=== PATIENT | male | born 1950 | race Two or more races ===

== ENCOUNTER 2025-06-21 10:07 | Inpatient (IN) | payer OTHER, MEDICARE ==
[2025-06-21] VITALS (9 sets, daily range): BP systolic 96–114; BP diastolic 47–73; PULSE 78–86; RESP 11–18; TEMP 97.9–99.3; O2SAT 99–100
[~2025-06-21] VITALS: Ht 175.3 cm; Wt 77.3 kg
--- NOTE | 2025-06-21 10:31 | ED.PDOC ---
HPI (NEURO) HPI Comments 74 y/o M, with PMHx of CAD, CHF, and pancreatic cancer presents to the ED for CC of generalized weakness. Patient reports, he has been experiencing generalized weakness [id number]. Patient relays, to have further associated symptoms of faintness and fatigue. Patient endorses, being transfused for similar symptoms in the past. Patient denies shortness of breath, chest pain, melena, or hematemesis. No other symptoms or modifying factors are present at this time. Chief Complaint: General Weakness Time Seen by MD: 10:20 Reviewed Notes: Nurses Notes, Medications, Allergies Information Source: Patient, Spouse Mode of Arrival: Ambulatory Severity: Moderate Headache Severity: None Timing: Weeks Duration: Since onset Prehospital treatment: None Weakness Location: Generalized Onset: At rest Circumstances: Spontaneous Symptoms: Faintness, Weakness History of: Cancer Associated Signs and Symptoms: Weakness Past Medical History PAST MEDICAL HISTORY: CAD, Cancer, CHF, DM Surgical History: Denies all surgeries Family History Family History: Unknown Social History Smoker: Non-Smoker Alcohol: Denies ETOH Use Drugs: Denies Drug Use Lives In: Home Constitutional: reports: fatigue, weakness; denies: chills, diaphoresis, fever, malaise, sweats, others EENTM: denies: blurred vision, double vision, ear bleeding, ear discharge, ear drainage, ear pain, ear ringing, eye pain, eye redness, hearing loss, mouth pain, mouth swelling, nasal discharge, nose bleeding, nose congestion, nose pain, photophobia, tearing, throat pain, throat swelling, voice changes, others Respiratory: denies: cough, hemoptysis, orthopnea, SOB at rest, shortness of breath, SOB with excertion, stridor, wheezing, others Cardiovascular: denies: chest pain, dizzy spells, diaphoresis, Dyspnea on exertion, edema, irregular heart beat, left arm pain, lightheadedness, palpitations, PND, syncope, others Gastrointestinal: denies: abdomen distended, abdominal pain, blood streaked bowels, constipated, diarrhea, dysphagia, difficulty swallowing, hematemesis, melena, nausea, poor appetite, poor fluid intake, rectal bleeding, rectal pain, vomiting, others Genitourinary: denies: burning, dysuria, flank pain, frequency, hematuria, incontinence, penile discharge, penile sore, pain, testicle pain, testicle swelling, urgency, others Neurological: denies: dizziness, fainting, headache, left sided numbness, left sided weakness, numbness, paresthesia, pre-existing deficit, right sided numbness, right sided weakness, seizure, speech problems, tingling, tremors, wea kness, others Musculoskeletal: denies: back pain, gout, joint pain, joint swelling, muscle pain, muscle stiffness, neck pain, others Integumetry: denies: bruises, change in color, change in hair/nails, dryness, l aceration, lesions, lumps, rash, wounds, others Allergic/Immunocompromised: denies: Difficulty Healing, Frequent Infections, Hives, Itching, others Hematologic/Lymphatic: denies: anemia, blood clots, easy bleeding, easy bruising, swollen glands, others Endocrine: denies: excessive hunger, excessive sweating, excessive thirst, excessive urination, flushing, intolerance to cold, intolerance to heat, unexplained weight gain, unexplained weight loss, others Psychiatric: denies: anxiety, bipolar disorder, depression, hopeless, panic disorder, schizophrenia, sleepless, suicidal, others All Other Systems: Reviewed and Negative Physical Exam General Appearance: Moderate Distress HEENT: Pale Conjuntivae (L), Pale Conjuntivae (R), Pharynx Normal, TMs Normal Neck: Full Range of Motion, Non-Tender, Normal, Normal Inspection Respiratory: Chest Non-Tender, Lungs Clear, No Accessory Muscle Use, No Respiratory Distress, Normal Breath Sounds Cardiovascular: No Edema, No JVD, No Murmur, No Gallop, Tachycardia Breast Exam: Deferred Gastrointestinal: No Organomegaly, Non Tender, No Pulsatile Mass, Normal Bowel Sounds, Soft Genitalia: Deferred Pelvic: Deferred Rectal: Deferred Extremities: No calf tenderness, Normal capillary refill, No pedal edema Musculoskeletal : Apperance: Normal Neurologic: Alert, moisture meter operator II-XII nml as Tested, Motor Weakness, Normal Affect, Normal Mood, No Sensory Deficits Cerebellar Function: Normal Reflexes: Normal Skin: Dry, Pallor, Warm Lymphatic: No Adenopathy EKG EKG : Pulse Rate (adult): 92 [place]: Normal Cardiac Rhythm: NSR Block: None Hypertrophy: None ST: Normal Comments low voltage Was a procedure done? Was a procedure done?: No Differential Diagnosis (SZ) Seizure: N/A General Weakness: Anemia, Electrolyte imbalance, Hypoglycemia X-Ray, Labs, Meds, VS Vital Signs Date Time Temp Pulse Resp B/P (MAP) Pulse Ox O2 Delivery O2 Flow Rate FiO2 06/21/25 16:00 85 06/21/25 15:30 98.1 83 15 110/59 98.1 06/21/25 15:18 86 11 100 Room Air* 0 21 06/21/25 15:10 98.1 84 12 109/47 98.1 06/21/25 14:00 97.4 90 18 86/55 (65) 94 97.4 06/21/25 12:00 89 18 104/61 (75) 96 06/21/25 10:34 92 06/21/25 10:30 92 06/21/25 10:09 98.1 75 17 101/68 100 98.1 Lab Test 06/21/25 13:10 06/21/25 12:24 06/21/25 10:57 Range/Units White Blood Count 4.1 L 4.4-10.8 10^3/uL Red Blood Count 1.54 L 4.5-5.90 10^6/uL Hemoglobin 5.1 *L 13.5-17.5 g/dL Hematocrit 16.0 L 41.0-53.0 % Mean Corpuscular Volume 104.0 H 80.0-100.0 fL Mean Corpuscular Hemoglobin 33.0 H 28.0-32.0 pg Mean Corpuscular Hemoglobin Concent 31.8 L 32.0-36.0 g/dL Red Cell Distribution Width 15.8 H 11.8-14.3 % Platelet Count 268 140-450 10^3/uL Mean Platelet Volume 8.1 6.9-10.8 fL Neutrophils (%) (Auto) 77.7 37.0-80.0 % Lymphocytes (%) (Auto) 13.8 10.0-50.0 % Monocytes (%) (Auto) 8.0 0.0-12.0 % Eosinophils (%) (Auto) 0.1 0.0-7.0 % Basophils (%) (Auto) 0.4 0.0-2.0 % Neutrophils # (Auto) 3.2 1.6-8.6 10 ^3/uL Lymphocytes # (Auto) 0.6 0.4-5.4 10 ^3/uL Monocytes # (Auto) 0.3 0-1.3 10 ^3/uL Eosinophils # (Auto) 0 0-0.8 10 ^3/uL Basophils # (Auto) 0 0-0.2 10 ^3/uL Nucleated Red Blood Cells 0.4 % Prothrombin Time 13.1 H 9.3-11.8 sec Prothrombin Time INR 1.26 H 0.9-1.15 Activated Partial Thromboplast Time 23.1 L 24.5-34.5 SEC Sodium Level 139 136-145 mmol/L Potassium Level 4.5 3.5-5.1 mmol/L Chloride Level 106 98-107 mmol/L Carbon Dioxide Level 21 20-31 mmol/L Anion Gap 12 5-15 Blood Urea Nitrogen 17 9-23 mg/dL Creatinine 0.98 0.700-1.30 mg/dL Glomerular Filtration Rate Calc 81 >90 mL/min BUN/Creatinine Ratio 17.3 10.0-20.0 Serum Glucose 201 H 74-106 mg/dL Calcium Level 8.1 L 8.7-10.4 mg/dL Total Bilirubin 0.4 0.2-1.0 mg/dL Aspartate Amino Transferase (AST) 42 H 13-40 U/L Alanine Aminotransferase (ALT) 34 7-40 U/L Alkaline Phosphatase 289 H 46-116 U/L Total Protein 6.4 5.7-8.2 g/dL Albumin 2.8 L 3.2-4.8 g/dL Lipase 12 12-53 U/L Current Medications Medications (Trade) Dose Ordered Sig/Petros Route Start Time Stop Time Status Last Admin Sodium Chloride 500 ml @ 500 mls/hr Q1H ONCE IV 06/21/25 10:30 06/21/25 11:29 DC 06/21/25 12:50 IV Hep-Lock was established The patient was given normal saline at a 500 cc bolus The patient's CBC shows significant anemia with a hemoglobin of 5.1 and hematocrit of only 16 The patient will require 2 units of packed red blood cells but we did start with only 1 unit at this time The chemistry panel is within normal limits The hospitalist will continue to follow this patient an order the 2nd unit of blood to be transfused two The patient is being admitted at this time Time of 1ST Reevaluation: 10:50 Reevaluation 1ST: Unchanged Time of 2ND Reevaluation: 17:17 Reevaluation 2ND: Unchanged Patient Education/Counseling: Diagnosis, Treatment, Prognosis Family Education/Counseling: Diagnosis, Treatment, Prognosis Departure 1 Departure Time of Disposition: 17:17 Impression: Primary Impression: Severe anemia Additional Impression: Pancreatic cancer Qualified Codes: C25.9 - Malignant neoplasm of pancreas, unspecified Disposition: 09 ADMITTED INPATIENT Admit to: Tele Condition: Fair Critical Care Note Critical Care Time?: Yes (45 min-critical care time only) Stability Stability form required: Yes Unstable for transfer: Telemetry monitoring (Telemetry monitoring required), ED Physician Assesment (Clinical assesment) Heart Score Heart Score: Heart Score Response (Comments) Value History N/A 0 EKG N/A 0 Age N/A 0 Risk Factors N/A 0 Troponin N/A 0 Total 0 I personally scribed for ADE KONG MD ([email or web address]) on 06/21/25 at 10:31. Electronically submitted by Jolanta Turpin ([email or web address]). I personally scribed for ADE KONG MD ([email or web address]) on 06/21/25 at 10:34. Electronically submitted by Jolanta Turpin ([email or web address]). I personally scribed for ADE KONG MD ([email or web address]) on 06/21/25 at 10:38. Electronically submitted by Jolanta Turpin ([email or web address]). ADE KONG MD Jun 21, 2025 10:31
--- NOTE | 2025-06-21 10:43 | ECG ---
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
[2025-06-21 11:31] LABS: Alanine Aminotransferase 34 U/L (7-40); Albumin 2.8 g/dL (3.2-4.8); Alkaline Phosphatase 289 U/L (46-116); Anion Gap 12 (5-15); BUN/Creatinine Ratio 17.3 (10.0-20.0); Bilirubin, Total 0.4 mg/dL (0.2-1.0); Blood Urea Nitrogen 17 mg/dL (9-23); Calcium 8.1 mg/dL (8.7-10.4); Carbon Dioxide 21 mmol/L (20-31); Chloride 106 mmol/L (98-107); Glucose 201 mg/dL (74-106); Lipase 12 U/L (12-53); Potassium 4.5 mmol/L (3.5-5.1); Sodium 139 mmol/L (136-145); Total Protein 6.4 g/dL (5.7-8.2)
[2025-06-21] MEDS: SODIUM CHLORIDE 0.9% 500 ML IV ONE (12:50)
[2025-06-21 13:07] LABS: INR 1.26 (0.9-1.15); Partial Thromboplastin Time 23.1 SEC (24.5-34.5); Prothrombin Time 13.1 sec (9.3-11.8)
[2025-06-21 13:48] LABS: Hematocrit 16.0 % (41.0-53.0); Mean Corpuscular Hemoglobin 33.0 pg (28.0-32.0); Mean Corpuscular Volume 104.0 fL (80.0-100.0); Nucleated Red Blood Cells % 0.4 %
[2025-06-21 14:06] LABS: Hemoglobin 5.1 g/dL (13.5-17.5)
[2025-06-21] MEDS ORDERED: ACETAMINOPHEN 325 MG TAB PO PRN (19:30)
[2025-06-21] MEDS ORDERED: ONDANSETRON HCL 4 MG/2 ML VIAL IV PRN (19:30)
[2025-06-21] MEDS ORDERED: DEXTROSE (50%) 50ML SYRG IV PRN (19:30)
[2025-06-21 19:58] LABS: Total Iron Binding Capacity 276.0 ug/dL (250-425)
[2025-06-21 20:20] LABS: Iron 32.0 ug/dL (65-175)
[2025-06-21] MEDS: ACCU-CHEK COMFORT CURVE STRIP VI SCH (22:00)
[2025-06-21] MEDS: InsuLIN REG 1unit/0.01ml Soln (100units/ml) SC SCH (23:00)
--- NOTE | 2025-06-21 23:08 | DVHHP2 ---
History of Present Illness Reason for Visit: Generalized weakness History of Present Illness 74-year-old male presents for evaluation of generalized weakness. Patient reports a three-week history of generalized weakness with associated shortness for breath. He reports having a history of pancreatic carcinoma status post chemotherapy and radiation therapy. He reports last time he had similar symptoms he had low blood level and had to be transfused. Denies chest pain. No other acute complaints. Past Medical History Cancer, CHF, diabetes mellitus, CAD Past Surgical History Denies Family History Noncontributory Smoke: No ALCOHOL: none Drugs: None Lives: with Family (Review of systems are currently negative otherwise addressed in HPI.) Review of Systems Review of Systems Review of systems are currently negative otherwise addressed in HPI. Allergies: Coded Allergies: NO KNOWN ALLERGIES (Unverified , 06/21/25) Medications Current Medications Medications Dose Ordered Sig/Petros Route Start Time Stop Time Status Last Admin Dose Admin Diagnostic Test (Pha) 1 strip ACHS 06/21/25 22:00 06/21/25 22:00 1 STRIP Insulin Human Regular ACHS SC 06/21/25 22:00 Dextrose 50 ml UD PRN IV 06/21/25 19:30 Ondansetron HCl 4 mg Q4HP PRN IV 06/21/25 19:30 Acetaminophen 650 mg Q6HP PRN PO 06/21/25 19:30 Exam Vital Signs Vital Signs Date Time Temp Pulse Resp B/P (MAP) Pulse Ox O2 Delivery O2 Flow Rate FiO2 06/21/25 20:00 98.8 84 12 101/62 (75) 99 98.8 06/21/25 19:30 Room Air* 0 21 Exam Gen: 74-year-old male in mild distress. Skin: Warm, dry, normal color and texture, no rash. HEENT: Normocephalic atraumatic, mucous membranes moist and pink. Neck: Cervical and supraclavicular nodes normal without enlargement, trachea is midline, thyroid gland is normal without masses. Pulmonary: Clear to auscultation and percussion bilaterally. Cardiac: Regular rate and rhythm. No murmur Abdomen: Soft, nontender, nondistended, bowel sounds present all 4 quadrants, no guarding, no rigidity, no organomegaly. Extremities: No cyanosis, clubbing, no edema Neuro: Cranial nerves II through XII grossly intact, normal affect and speech, no focal motor deficits. Labs/Xrays Labs Test 06/21/25 22:02 06/21/25 13:10 06/21/25 12:24 06/21/25 10:57 Range/Units POC Glucose 199 H 70-106 mg/dl White Blood Count 4.1 L 4.4-10.8 10^3/uL Red Blood Count 1.54 L 4.5-5.90 10^6/uL Hemoglobin 5.1 *L 13.5-17.5 g/dL Hematocrit 16.0 L 41.0-53.0 % Mean Corpuscular Volume 104.0 H 80.0-100.0 fL Mean Corpuscular Hemoglobin 33.0 H 28.0-32.0 pg Mean Corpuscular Hemoglobin Concent 31.8 L 32.0-36.0 g/dL Red Cell Distribution Width 15.8 H 11.8-14.3 % Platelet Count 268 140-450 10^3/uL Mean Platelet Volume 8.1 6.9-10.8 fL Neutrophils (%) (Auto) 77.7 37.0-80.0 % Lymphocytes (%) (Auto) 13.8 10.0-50.0 % Monocytes (%) (Auto) 8.0 0.0-12.0 % Eosinophils (%) (Auto) 0.1 0.0-7.0 % Basophils (%) (Auto) 0.4 0.0-2.0 % Neutrophils # (Auto) 3.2 1.6-8.6 10 ^3/uL Lymphocytes # (Auto) 0.6 0.4-5.4 10 ^3/uL Monocytes # (Auto) 0.3 0-1.3 10 ^3/uL Eosinophils # (Auto) 0 0-0.8 10 ^3/uL Basophils # (Auto) 0 0-0.2 10 ^3/uL Nucleated Red Blood Cells 0.4 % Prothrombin Time 13.1 H 9.3-11.8 sec Prothrombin Time INR 1.26 H 0.9-1.15 Activated Partial Thromboplast Time 23.1 L 24.5-34.5 SEC Sodium Level 139 136-145 mmol/L Potassium Level 4.5 3.5-5.1 mmol/L Chloride Level 106 98-107 mmol/L Carbon Dioxide Level 21 20-31 mmol/L Anion Gap 12 5-15 Blood Urea Nitrogen 17 9-23 mg/dL Creatinine 0.98 0.700-1.30 mg/dL Glomerular Filtration Rate Calc 81 >90 mL/min BUN/Creatinine Ratio 17.3 10.0-20.0 Serum Glucose 201 H 74-106 mg/dL Calcium Level 8.1 L 8.7-10.4 mg/dL Iron Level 32 L 65-175 ug/dL Total Iron Binding Capacity 276 250-425 ug/dL Percent Iron Saturation 11.6 L 20-55 % Total Bilirubin 0.4 0.2-1.0 mg/dL Aspartate Amino Transferase (AST) 42 H 13-40 U/L Alanine Aminotransferase (ALT) 34 7-40 U/L Alkaline Phosphatase 289 H 46-116 U/L Total Protein 6.4 5.7-8.2 g/dL Albumin 2.8 L 3.2-4.8 g/dL Lipase 12 12-53 U/L SEPSIS Sepsis Screen Date sepsis recognized/suspect: Jun 21, 2025 Time Sepsis recognized/suspect: 1999 Recent Procedure: No On Antibiotic Therapy: No Respiratory Rate >20: No Heart Rate >90: No Temp<36 C (96.8 F) or >38.3 C: No SBP <90 or MAP <65 mmHG: No New Acute Mental Status Change: No Is the patient on CPAP, BIPAP,: No Physician Orders Consistent Carb(Ccho)Diabetes (06/22/25 Breakfast) Basic Metabolic Panel (06/22/25 04:00) Glucose Blood (Accu-Chek Comfort Curve T (06/21/25 22:00) Insulin R (Human) (Insulin R) (06/21/25 22:00) Dextrose 50% Syringe (06/21/25 19:30) Admit (06/21/25 19:25) Ondansetron Hcl (Zofran) (06/21/25 19:30) Complete Blood Count (06/22/25 04:00) Condition: Stable (06/21/25 19:25) Acetaminophen Tablet (Tylenol Tablet) (06/21/25 19:30) Bedrest With Bathroom Privileg (06/21/25 19:25) Stool Occult Blood (06/21/25 19:29) Vital Signs Date Time Temp Pulse Resp B/P (MAP) Pulse Ox O2 Delivery O2 Flow Rate FiO2 06/21/25 20:00 98.8 84 12 101/62 (75) 99 98.8 06/21/25 19:30 Room Air* 0 21 06/21/25 18:00 80 17 107/64 (78) 99 06/21/25 16:00 85 18 114/63 (80) 99 06/21/25 16:00 85 06/21/25 15:30 98.1 83 15 110/59 98.1 06/21/25 15:18 86 11 100 Room Air* 0 21 06/21/25 15:10 98.1 84 12 109/47 98.1 Laboratory Tests Test 06/21/25 13:10 White Blood Count 4.1 10^3/uL (4.4-10.8) L Medications Medications Dose Ordered Sig/Petros Route Start Time Stop Time Status Last Admin Dose Admin Diagnostic Test (Pha) 1 strip ACHS 06/21/25 22:00 06/21/25 22:00 1 STRIP Assessment/Plan Assessment/Plan Assessment Symptomatic anemia Pancreatic carcinoma Diabetes mellitus Hypertension Plan Admit the patient to [facility] to the hospitalist Transfuse two packed red cells Resume home medications Continue treatment per orders. Plan discussed with: Patient My Orders Orders - ELSI JUNE Procedure Category Date Status Time Consistent DIET 06/22/25 Transmitted Carb(Ccho)Diabetes Breakfast Basic Metabolic Panel LAB 06/22/25 Verified 04:00 Glucose Blood PHA 06/21/25 In Process (Accu-Chek Comfort 22:00 Insulin R (Human) PHA 06/21/25 In Process (Insulin R) 22:00 Dextrose 50% Syringe PHA 06/21/25 In Process 19:30 Admit ADMIT 06/21/25 Transmitted 19:25 Ondansetron Hcl PHA 06/21/25 In Process (Zofran) 19:30 Complete Blood Count LAB 06/22/25 Verified 04:00 Condition: Stable RUBEN 06/21/25 In Process 19:25 Acetaminophen Tablet PHA 06/21/25 In Process (Tylenol Tablet) 19:30 Bedrest With Bathroom RUBEN 06/21/25 In Process Privileg 19:25 Stool Occult Blood LAB 06/21/25 Logged 19:29 Date of Service: Jun 21, 2025 Billing Provider: ELSI JUNE Common Visit Codes: [id number] INP/OBS CARE (HIGH) ELSI JUNE AGACNP Jun 21, 2025 23:08
[2025-06-22] VITALS (9 sets, daily range): BP systolic 97–116; BP diastolic 53–88; PULSE 81–106; RESP 13–21; TEMP 97.8–99.4; O2SAT 96–100
[2025-06-22 08:01] LABS: Nucleated Red Blood Cells % 0.2 %
[2025-06-22 08:04] LABS: Hematocrit 21.2 % (41.0-53.0); Hemoglobin 7.2 g/dL (13.5-17.5); Mean Corpuscular Hemoglobin 32.2 pg (28.0-32.0); Mean Corpuscular Volume 94.7 fL (80.0-100.0)
[2025-06-22 08:14] LABS: Sodium 140 mmol/L (136-145)
[2025-06-22 08:15] LABS: Carbon Dioxide 24 mmol/L (20-31)
[2025-06-22 08:21] LABS: BUN/Creatinine Ratio 16.7 (10.0-20.0); Blood Urea Nitrogen 16 mg/dL (9-23)
[2025-06-22 08:23] LABS: Calcium 8.0 mg/dL (8.7-10.4); Glucose 137 mg/dL (74-106); Potassium 3.3 mmol/L (3.5-5.1)
[2025-06-22 08:55] LABS: Anion Gap 9 (5-15); Chloride 107 mmol/L (98-107)
--- NOTE | 2025-06-22 12:22 | DVHPN2 ---
Progress Note Date Seen: Jun 22, 2025 Medical Necessity Reason Pt with a Central, PICC or Fol: No Subjective Patient reports: No new complaints Review of Systems: HEENT:Normal, CVS:Normal, RESPIRATORY:Normal, GI:Normal, :Normal, MSK:Normal, NEURO:Normal Objective vital signs Vital Sign Date Time Temp Pulse Resp B/P (MAP) Pulse Ox O2 Delivery O2 Flow Rate FiO2 06/22/25 09:00 97.8 106 21 111/88 (96) 97 97.8 06/21/25 21:35 Room Air* 0 21 Total Intake and Output 06/21/25 06/21/25 06/22/25 15:00 23:00 07:00 Intake Total 500 ml 600 ml 540 ml Output Total 0 ml Balance 500 ml 600 ml 540 ml medications Current Medications Medications Dose Ordered Sig/Petros Route Start Time Stop Time Status Last Admin Dose Admin Diagnostic Test (Pha) 1 strip ACHS 06/21/25 22:00 06/22/25 11:11 1 STRIP Insulin Human Regular ACHS SC 06/21/25 22:00 06/22/25 11:11 6 UNITS Dextrose 50 ml UD PRN IV 06/21/25 19:30 Ondansetron HCl 4 mg Q4HP PRN IV 06/21/25 19:30 Acetaminophen 650 mg Q6HP PRN PO 06/21/25 19:30 Examination: GENERAL:Normal, HEENT:Normal, NECK:Normal, LUNGS:Normal, CVS:Normal, ABDOMEN:Normal, MSK:Normal, SKIN:Normal, NEURO:Normal, :Normal laboratory and microbiology Laboratory Tests 06/22/25 06:22 Test 06/22/25 06:22 Range/Units Serum Glucose 137 H 74-106 mg/dL Problem List/Assessment/Plan Problem List/Assessment/Plan #1 severe anemia s/p transfusion #2 gi bleed: gi eval #3 pancreatic cancer s/p Whipple's surgery/chemo/radiation: ct abdomen #4 dm: ssi #5 cad s/p stent #6 transaminitis advance care planning- full code- time spent 18 mins Plan discussed with: Patient, Spouse My Orders My Orders Orders - ELSI FONTANEZ MD Procedure Category Date Status Time * Gi [facility] [employer] Super[employer] CONS 06/22/25 Verified 12:15 Pantoprazole PHA 06/22/25 Verified (Protonix) 12:15 Pantoprazole PHA 06/22/25 Verified (Protonix) 22:00 Urinalysis LAB 06/22/25 Uncollected 12:[address] Ct Abd Pelvis W CT 06/22/25 Verified Con-Oral & Iv 12:15 Potassium Chl Shahram PHA 06/22/25 Verified KCL 12:15 Carbohydrate Antigen LAB 06/22/25 Verified 19-9 NS PHA 06/22/25 Verified 12:15 Complete Blood Count LAB 06/23/25 Verified 06:00 Comprehensive LAB 06/23/25 Verified Metabolic Panel 06:00 Hemoglobin A1c LAB 06/23/25 Verified 06:00 Chest Portable XY 06/22/25 Verified 12:15 Date of Service: Jun 22, 2025 Billing Provider: ELSI FONTANEZ MD Common Visit Codes: [id number] INP/OBS CARE(HIGH) Secondary Visit Codes: [id number] CARE PLAN 30 MINUTES CC Plasma Assessment Blood Product Administration S: [id number] ELSI FONTANEZ MD Jun 22, 2025 12:22
--- NOTE | 2025-06-22 12:54 | DVH ---
CHEST RADIOGRAPH Indication: CAD Technique: Single frontal view of the chest was obtained Comparison: None FINDINGS: Lines and Tubes: None Lungs: Elevation of the left diaphragm with what appears to be gas-filled bowel below the left diaphragm displacing it cephalad. If pneumoperitoneum is of clinical concern recommend CT abdomen and pelvis. Pleura: No effusion. No pneumothorax. Cardiomediastinal contours: Cardiac size appears enlarged. Bones: No acute osseous abnormality. IMPRESSION: 1. No acute cardiopulmonary disease. 2. Elevation of the left diaphragm.
[2025-06-22] MEDS ORDERED: OMNIPAQUE 12mg/ml 500ml ORAL SOLUTION PO ONE (14:14)
[2025-06-22] MEDS: POTASSIUM CHLORIDE 40 MEQ, LIDOCAINE 1% (LOCAL ANESTH.) 4 ML in SODIUM CHL 0.9% 250 ML IV ONE (14:57)
[2025-06-22] MEDS: PANTOPRAZOLE 40 MG/10 ML VIAL INJ IV ONE (14:57)
[2025-06-22] MEDS: SODIUM CHLORIDE 0.9% 1,000 ML IV SCH (14:58)
[2025-06-22] MEDS ORDERED: IOHEXOL 300 MG/ML 100ML BOTTLE IJ ONE (16:25)
--- NOTE | 2025-06-22 17:33 | DVH ---
COMPUTERIZED TOMOGRAPHY ABDOMEN AND PELVIS WITH CONTRAST REASON FOR EXAM: GI BLEEDING, PANCREATIC CANCER COMPARISON: None TECHNIQUE: The exam was performed on a Multidetector scanner. Spiral scans were acquired from the diaphragm to the symphysis pubis after administration of IV contrast. 2-D coronal and sagittal reformatted images were provided. Radiation optimization: All CT scans at this facility use at least one of these dose optimization techniques: Automated exposure control mA and/or kV adjustment per patient size (includes targeted exams where dose is matched to clinical indication) or iterative reconstruction. CONTRAST ADMINISTRATION: 90 cc Omnipaque 300 intravenously. 500 cc dilute omnipaque by mouth. RADIATION DOSE: CTDI: 14.6 mGy DLP: 844.83 mGy-cm FINDINGS: Respiratory motion artifact degrades evaluation. There is elevation of the left hemidiaphragm. There is trace left pleural effusion. There is a small hiatal hernia. There is trace fluid in the posterior mediastinum just above the diaphragm. The spleen is grossly unremarkable. The liver is not enlarged. Evaluation is degraded by streak artifact from the patient's left arm. There is pneumobilia. The portal vein is patent. The gallbladder is not seen and may be collapsed or absent. There is a small amount of fluid distributed throughout the abdomen and pelvis. The patient is status post partial gastrectomy and partial pancreatectomy. There is choledochojejunostomy. Ingested contrast moves through a gastrojejunostomy and can be seen as far as the proximal ileum. There is moderate fecal material filling the middle and distal portions of the ileum without pathologic distention. There is [id number] amount of stool in the ascending, transverse, and descending colon. The sigmoid colon is redundant and mildly distended with gas. The rectum appears empty. The urinary bladder appears grossly unremarkable. The prostate is enlarged. There is a small right inguinal hernia containing abdominal fluid. There is no abdominal aortic aneurysm. The appendix is normal. There is mildly increased attenuation of the fat between the SMA and the aorta without evidence of a mass, possibly edema. There is bilateral L5 spondylolysis. There is 5 mm anterolisthesis of L5 on S1. No acute fracture is identified. IMPRESSION: Evidence of Whipple procedure. Small amount of fluid distributed throughout the abdomen and pelvis, possibly postoperative. Expected pneumobilia. Elevation of the left hemidiaphragm. Trace left pleural effusion. Trace fluid about the distal esophagus in the posterior mediastinum. [id number]-[id number] amount of stool in the ascending, transverse, and descending colon. Moderate fecal material filling the middle and distal portions of the ileum. No pathologic distention of the small bowel to suggest small bowel obstruction. Constipation and ileus are considerations. Small right inguinal hernia containing abdominal fluid. No evidence of gastrointestinal bleeding on the current study, possibly secondary to enteric contrast which would obscure any evidence of GI bleed in the area of enteric contrast.
[2025-06-22] MEDS: SUCRALFATE 1 GM/10 ML ORAL SUSP PO SCH (17:35)
--- NOTE | 2025-06-22 18:08 | DVHCONRES ---
Date Seen: Jun 22, 2025 Resident Creating Document: JHAJJ,SARPUNEET RESIDENT Referring Physician Dr. Parrish Reason for Consultation GI bleed History of Present Illness Patient is a 74-year-old male with a history of CAD, CHF, pancreatic cancer status post chemotherapy last session in September 2024, status post radiation last session in March 2025 presents to the hospital with a chief complaint of g eneralized weakness. Patient reportedly has been having black stools over the last week but denies any nausea vomiting or hematemesis. Patient denies any abdominal pain. Past Medical History As per HPI Past Surgical History Whipple's procedure Family History: Alcoholism Cardiovascular disease G8 MOTHER Diabetes mellitus G8 MOTHER Family History Noncontributory Social History Denies smoking, alcohol, drug use Allergies: Coded Allergies: NO KNOWN ALLERGIES (Unverified , 06/21/25) Current Medications Current Medications Medications (Trade) Dose Ordered Sig/Petros Route PRN Reason Start Time Stop Time Status Last Admin Diagnostic Test (Pha) (Accu-Chek Comfort Curve T) 1 strip ACHS 06/21/25 22:00 06/22/25 17:00 Insulin Human Regular (InsuLIN R) ACHS SC 06/21/25 22:00 06/22/25 17:35 Dextrose 50 ml UD PRN IV Blood Sugar LESS THAN 60 06/21/25 19:30 Ondansetron HCl (Zofran) 4 mg Q4HP PRN IV NAUSEA / VOMITING 06/21/25 19:30 Acetaminophen (Tylenol Tablet) 650 mg Q6HP PRN PO PAIN SCALE 1-3 OR TEMP>100.4 06/21/25 19:30 Pantoprazole Sodium (Protonix) 40 mg BID IV 06/22/25 22:00 Sodium Chloride 1,000 ml @ 75 mls/hr [id number] IV 06/22/25 12:15 06/22/25 14:58 Sucralfate (Carafate Susp) 1 gm QID@0600,1130,1700,2200 PO 06/22/25 17:00 06/22/25 17:35 Review of Systems Patient continues to report black stools Denies nausea vomiting abdominal pain H&H improved after transfusion of [address] abdomen pelvis with the IV and p.o. contrast showed moderate to large amount of stool in the ascending transverse and descending colon, moderate fecal material filling the middle and distal portions of the ileum Vital Signs Vital Signs Date Time Temp Pulse Resp B/P (MAP) Pulse Ox O2 Delivery O2 Flow Rate FiO2 06/22/25 16:56 99.4 96 20 100/72 (81) 98 99.4 06/21/25 21:35 Room Air* 0 21 Physical Exam Gen - no pallor, no scleral icterus Skin - Patients skin is warm and dry. HEENT - normocephalic, atraumatic, dry mucous membranes. Neck - supple, no lymphadenopathy Pulmonary - B/L clear breath sounds cardiovascular - regular S1,S2 heard GI - abdomen tense but no tenderness to palpation. Bowel sounds hypoactive. Neurological - Patient is alert and oriented x4 Labs/Diagnostic Data Labs Test 06/22/25 17:14 06/22/25 06:22 06/21/25 12:24 06/21/25 10:57 Range/Units POC Glucose 260 H 70-106 mg/dl White Blood Count 3.7 L 4.4-10.8 10^3/uL Red Blood Count 2.24 L 4.5-5.90 10^6/uL Hemoglobin 7.2 #L 13.5-17.5 g/dL Hematocrit 21.2 #L 41.0-53.0 % Mean Corpuscular Volume 94.7 # 80.0-100.0 fL Mean Corpuscular Hemoglobin 32.2 H 28.0-32.0 pg Mean Corpuscular Hemoglobin Concent 34.0 32.0-36.0 g/dL Red Cell Distribution Width 17.3 H 11.8-14.3 % Platelet Count 219 140-450 10^3/uL Mean Platelet Volume 7.7 6.9-10.8 fL Neutrophils (%) (Auto) 69.4 37.0-80.0 % Lymphocytes (%) (Auto) 19.8 10.0-50.0 % Monocytes (%) (Auto) 9.7 0.0-12.0 % Eosinophils (%) (Auto) 0.8 0.0-7.0 % Basophils (%) (Auto) 0.3 0.0-2.0 % Neutrophils # (Auto) 2.6 1.6-8.6 10 ^3/uL Lymphocytes # (Auto) 0.7 0.4-5.4 10 ^3/uL Monocytes # (Auto) 0.4 0-1.3 10 ^3/uL Eosinophils # (Auto) 0 0-0.8 10 ^3/uL Basophils # (Auto) 0 0-0.2 10 ^3/uL Nucleated Red Blood Cells 0.2 % Sodium Level 140 136-145 mmol/L Potassium Level 3.3 L 3.5-5.1 mmol/L Chloride Level 107 98-107 mmol/L Carbon Dioxide Level 24 20-31 mmol/L Anion Gap 9 5-15 Blood Urea Nitrogen 16 9-23 mg/dL Creatinine 0.96 0.700-1.30 mg/dL Glomerular Filtration Rate Calc 83 >90 mL/min BUN/Creatinine Ratio 16.7 10.0-20.0 Serum Glucose 137 H 74-106 mg/dL Calcium Level 8.0 L 8.7-10.4 mg/dL Prothrombin Time 13.1 H 9.3-11.8 sec Prothrombin Time INR 1.26 H 0.9-1.15 Activated Partial Thromboplast Time 23.1 L 24.5-34.5 SEC Iron Level 32 L 65-175 ug/dL Total Iron Binding Capacity 276 250-425 ug/dL Percent Iron Saturation 11.6 L 20-55 % Total Bilirubin 0.4 0.2-1.0 mg/dL Aspartate Amino Transferase (AST) 42 H 13-40 U/L Alanine Aminotransferase (ALT) 34 7-40 U/L Alkaline Phosphatase 289 H 46-116 U/L Total Protein 6.4 5.7-8.2 g/dL Albumin 2.8 L 3.2-4.8 g/dL Lipase 12 12-53 U/L Test 06/21/25 07:45 Range/Units Stool Occult Blood Positive Negative Stool Occult Blood Sample #3 Negative Assessment Upper GI bleed Severe anemia likely due to above Probable acute gastritis Transaminitis H/o pancreatic cancer status post chemotherapy/radiation/Whipple's procedure Plan - Protonix b.i.d. - Carafate q.i.d. - clear liquid diet and NPO after midnight - patient is scheduled for EGD tomorrow - monitor LFTs Plan discussed with Dr. Joshi Plan discussed with: Patient, Other (SIRI Leon) TANYA PHILLIP RESIDENT Jun 22, 2025 18:08
[2025-06-22] MEDS: PANTOPRAZOLE 40 MG/10 ML VIAL INJ IV SCH (23:06)
[2025-06-23] VITALS (13 sets, daily range): BP systolic 91–113; BP diastolic 32–72; PULSE 68–97; RESP 15–20; TEMP 97.6–98.1; O2SAT 94–100
[2025-06-23 05:21] LABS: Hematocrit 16.6 % (41.0-53.0)
[2025-06-23 05:37] LABS: Mean Corpuscular Hemoglobin 31.9 pg (28.0-32.0); Mean Corpuscular Volume 95.9 fL (80.0-100.0); Nucleated Red Blood Cells % 0.5 %
[2025-06-23 05:39] LABS: Hemoglobin 5.5 g/dL (13.5-17.5)
[2025-06-23 05:40] LABS: Alanine Aminotransferase 26 U/L (7-40); Anion Gap 10 (5-15); BUN/Creatinine Ratio 17.0 (10.0-20.0); Bilirubin, Total 0.8 mg/dL (0.2-1.0); Blood Urea Nitrogen 16 mg/dL (9-23); Carbon Dioxide 23 mmol/L (20-31); Glucose 102 mg/dL (74-106); Potassium 4.2 mmol/L (3.5-5.1); Sodium 142 mmol/L (136-145); Total Protein 5.7 g/dL (5.7-8.2)
[2025-06-23 05:42] LABS: Albumin 2.5 g/dL (3.2-4.8); Alkaline Phosphatase 226 U/L (46-116); Calcium 7.8 mg/dL (8.7-10.4); Chloride 109 mmol/L (98-107)
--- NOTE | 2025-06-23 11:32 | DVHPN2 ---
Progress Note Date Seen: Jun 23, 2025 Medical Necessity Reason Pt with a Central, PICC or Fol: No Subjective Patient reports: No new complaints Review of Systems: HEENT:Normal, CVS:Normal, RESPIRATORY:Normal, GI:Normal, :Normal, MSK:Normal, NEURO:Normal Objective vital signs Vital Sign Date Time Temp Pulse Resp B/P (MAP) Pulse Ox O2 Delivery O2 Flow Rate FiO2 06/23/25 09:03 98.1 73 16 94/55 98.1 06/23/25 09:00 99 06/23/25 08:00 Room Air* 0 21 Total Intake and Output 06/22/25 06/22/25 06/23/25 15:00 23:00 07:00 Intake Total 1274 ml 500 ml Output Total 200 ml Balance 1274 ml 300 ml medications Current Medications Medications Dose Ordered Sig/Petros Route Start Time Stop Time Status Last Admin Dose Admin Diagnostic Test (Pha) 1 strip ACHS 06/21/25 22:00 06/23/25 11:21 1 STRIP Insulin Human Regular ACHS SC 06/21/25 22:00 06/22/25 17:35 6 UNITS Dextrose 50 ml UD PRN IV 06/21/25 19:30 Ondansetron HCl 4 mg Q4HP PRN IV 06/21/25 19:30 Acetaminophen 650 mg Q6HP PRN PO 06/21/25 19:30 Pantoprazole Sodium 40 mg BID IV 06/22/25 22:00 06/22/25 23:06 40 MG Sodium Chloride 1,000 ml @ 75 mls/hr [id number] IV 06/22/25 12:15 06/23/25 01:35 75 MLS/HR Sucralfate 1 gm QID@0600,1130,1700,2200 PO 06/22/25 17:00 06/22/25 23:07 1 GM Examination: GENERAL:Normal, HEENT:Normal, NECK:Normal, LUNGS:Normal, CVS:Normal, ABDOMEN:Normal, ABDOMEN:Abnormal (distension), MSK:Normal, SKIN:Normal, NEURO:Normal, :Normal laboratory and microbiology Laboratory Tests 06/23/25 04:41 Test 06/23/25 04:41 Range/Units Serum Glucose 102 74-106 mg/dL Problem List/Assessment/Plan Problem List/Assessment/Plan #1 severe anemia s/p transfusion #2 gi bleed: gi eval, egd today #3 pancreatic cancer s/p Whipple's surgery/chemo/radiation: ct abdomen #4 dm: ssi #5 cad s/p stent #6 transaminitis advance care planning- full code- time spent 18 mins Plan discussed with: Patient, Spouse My Orders My Orders Orders - ELSI FONTANEZ MD Procedure Category Date Status Time * Gi Dvh Can Slider CONS 06/22/25 Transmitted 12:15 Pantoprazole PHA 06/22/25 In Process (Protonix) 22:00 Urinalysis LAB 06/22/25 Uncollected 12:[address] Ct Abd Pelvis W CT 06/22/25 Resulted Con-Oral & Iv 12:15 Sodium Chloride 0.9% PHA 06/22/25 In Process 12:15 Chest Portable XY 06/22/25 Resulted 12:15 Manager Utilization Review ORDERS 06/22/25 Transmitted 12:19 * Pipe Bending Machine Operator CONS 06/22/25 Transmitted Consult Date of Service: Jun 23, 2025 Billing Provider: ELSI FONTANEZ MD Common Visit Codes: [id number] INP/OBS CARE(HIGH) CC Plasma Assessment Blood Product Administration S: [id number] ELSI FONTANEZ MD Jun 23, 2025 11:32
[2025-06-23 12:30] LABS: Hematocrit 21.5 % (41.0-53.0); Hemoglobin 7.3 g/dL (13.5-17.5); Mean Corpuscular Hemoglobin 32.4 pg (28.0-32.0); Mean Corpuscular Volume 96.1 fL (80.0-100.0); Nucleated Red Blood Cells % 0.4 %
[2025-06-23] MEDS ORDERED: MIDAZOLAM HCL 2MG/2ML 2ml VIAL (1mg/ml) ONE (13:25)
[2025-06-23] MEDS ORDERED: FLUMAZENIL 0.1 MG/ML INJ 10ML MDV IV ONE (13:26)
[2025-06-23] MEDS ORDERED: NALOXONE HCL 0.4 MG/ML VIAL ONE (13:26)
[2025-06-23] MEDS ORDERED: SODIUM CHLORIDE LOCK 10 ML ONE (13:29)
[2025-06-23] MEDS: LIDOCAINE VISCOUS 2% 15ML UD ONE (14:08)
[2025-06-23] MEDS: fentaNYL CITRATE 100 MCG/2 ML VL ONE (14:09)
[2025-06-23] MEDS: diphenhydrAMINE HCL 50 MG/1 ML VL ONE (14:09)
[2025-06-23] MEDS: MIDAZOLAM HCL 5 MG/ML-1ML VIAL ONE (14:09)
--- NOTE | 2025-06-23 14:25 | DVHOP2 ---
Operative Report DATE OF OPERATION: 06/23/25 PROCEDURE: Upper Endoscopy with biopsy PREOPERATIVE INDICATION: The patient is a 74 -year-old male undergoing endoscopy for anemia and history of melena POSTOPERATIVE DIAGNOSES: 1. Patient had a 1.5-2 cm anastomotic ulcer on the jejunal side of the gastrojejunal anastomosis with a visible red dot with no active bleeding 2. 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 1 cm sliding-type hiatal hernia otherwise normal examination up to the efferent and loop of the gastrojejunostomy PROCEDURE PERFORMED BY: Alana Joshi GI NURSE: Mike SCOPE: Olympus videoendoscope. ASA CLASS: 3 PREOPERATIVE MEDICATIONS: Versed 2 mg, Fentanyl 50 mcg, Benadryl 50 mg I administered moderate sedation throughout this _9_ minutes procedure. An independent trained observer pushed medications at my direction, and monitored the patient's level of consciousness and physiological status throughout. PROCEDURE IN DETAIL: After obtaining an informed consent, the patient was placed on left lateral decubitus position. The patient was then sedated with the above medications. A bite block was placed between his teeth. The endoscope was then passed through the oropharynx, into the esophagus, and through the stomach into the efferent loop of the gastrojejunostomy There was good bile drainage and no fresh or old blood in the upper GI tract. Patient had a 1.5-2 cm anastomotic ulcer on the jejunal side of the gastrojejunal anastomosis There was a visible red dot but no active bleeding no visible vessel. Patient had mild gastritis. On retroflexion the fundus and cardia were normal. The endoscope was then withdrawn into the distal esophagus Patient had a 1 cm sliding-type hiatal hernia with no significant erosive esop hagitis. The remaining distal and proximal esophagus and oropharynx were unremarkable and pylorus up to the second and third part of the duodenum. The endoscope was then withdrawn. The patient tolerated the procedure well without difficulty. COMPLICATIONS : None SPECIMENS: Jejunal biopsies Gastric biopsies DISPOSITION: Transfer back to the floor Stable PLAN: 1. Await for biopsy result 2. Will place pt on Protonix 40 mg bid IV 3. Carafate suspension 1 g 4 times a day 4. DC aspirin NSAIDs smoking alcohol 5. This patient may also be possibly liquids of gastrojejunostomy, recommend maintenance on iron and B12 6. Outpatient follow up with me in 4-6 weeks to discuss elective screening colonoscopy if not recently done ALANA JOSHI MD Jun 23, 2025 14:25
[2025-06-24] VITALS (9 sets, daily range): BP systolic 87–123; BP diastolic 54–81; PULSE 70–110; RESP 16–24; TEMP 97.9–99.1; O2SAT 95–98
[2025-06-24 04:58] LABS: Chloride 106 mmol/L (98-107); Potassium 3.6 mmol/L (3.5-5.1); Sodium 141 mmol/L (136-145)
[2025-06-24 04:59] LABS: Anion Gap 12 (5-15); Carbon Dioxide 23 mmol/L (20-31)
[2025-06-24 05:00] LABS: Hemoglobin 8.0 g/dL (13.5-17.5); Nucleated Red Blood Cells % 0.1 %
[2025-06-24 05:02] LABS: Calcium 8.2 mg/dL (8.7-10.4); Hematocrit 23.8 % (41.0-53.0); Mean Corpuscular Hemoglobin 32.3 pg (28.0-32.0); Mean Corpuscular Volume 96.2 fL (80.0-100.0)
[2025-06-24 05:04] LABS: BUN/Creatinine Ratio 15.6 (10.0-20.0); Blood Urea Nitrogen 14 mg/dL (9-23)
[2025-06-24 05:05] LABS: Glucose 109 mg/dL (74-106)
--- NOTE | 2025-06-24 05:30 | DVH ---
ABDOMINAL RADIOGRAPH Indication: abd distension Technique: 2 frontal view of the abdomen was obtained Comparison: None FINDINGS: Lines and tubes: A catheter overlying the right upper quadrant. There is diffuse stool throughout the colon. There is a nonobstructive bowel gas pattern. No supine radiographic evidence of pneumoperitoneum. Bony structures unremarkable. IMPRESSION: 1. Stool throughout the colon suggesting constipation. 2. Nonobstructive bowel gas pattern.
--- NOTE | 2025-06-24 12:12 | DVHPN2 ---
Progress Note Date Seen: Jun 24, 2025 Medical Necessity Reason Pt with a Central, PICC or Fol: No Subjective Patient reports: No new complaints Review of Systems: HEENT:Normal, CVS:Normal, RESPIRATORY:Normal, GI:Normal, :Normal, MSK:Normal, NEURO:Normal Objective vital signs Vital Sign Date Time Temp Pulse Resp B/P (MAP) Pulse Ox O2 Delivery O2 Flow Rate FiO2 06/24/25 09:00 98.5 89 18 105/59 (74) 97 98.5 06/24/25 08:00 Room Air* 0 21 Total Intake and Output 06/23/25 06/23/25 06/24/25 15:00 23:00 07:00 Intake Total 310 ml 0 ml 0 ml Balance 310 ml 0 ml 0 ml medications Current Medications Medications Dose Ordered Sig/Petros Route Start Time Stop Time Status Last Admin Dose Admin Diagnostic Test (Pha) 1 strip ACHS 06/21/25 22:00 06/24/25 10:52 1 STRIP Insulin Human Regular ACHS SC 06/21/25 22:00 06/24/25 11:25 3 UNITS Dextrose 50 ml UD PRN IV 06/21/25 19:30 Ondansetron HCl 4 mg Q4HP PRN IV 06/21/25 19:30 Acetaminophen 650 mg Q6HP PRN PO 06/21/25 19:30 Pantoprazole Sodium 40 mg BID IV 06/22/25 22:00 06/24/25 09:54 40 MG Sodium Chloride 1,000 ml @ 75 mls/hr [id number] IV 06/22/25 12:15 06/24/25 04:15 75 MLS/HR Sucralfate 1 gm QID@0600,1130,1700,2200 PO 06/22/25 17:00 06/24/25 09:54 1 GM Examination: GENERAL:Normal, HEENT:Normal, NECK:Normal, LUNGS:Normal, CVS:Normal, ABDOMEN:Normal, MSK:Normal, SKIN:Normal, NEURO:Normal, :Normal laboratory and microbiology Laboratory Tests 06/24/25 04:37 Test 06/24/25 04:37 Range/Units Serum Glucose 109 H 74-106 mg/dL Problem List/Assessment/Plan Problem List/Assessment/Plan #1 severe anemia s/p transfusion #2 gi bleed: anastomotic ulcer, ppi, carafate #3 pancreatic cancer s/p Whipple's surgery/chemo/radiation: ct abdomen #4 dm: ssi #5 cad s/p stent #6 transaminitis advance care planning- full code- time spent 18 mins Plan discussed with: Patient, Spouse My Orders My Orders Orders - ELSI FONTANEZ MD Procedure Category Date Status Time Regular Diet DIET 06/24/25 Verified Lunch Vitamin B12 LAB 06/24/25 Verified 12:04 Iron Panel LAB 06/24/25 Verified 12:04 Complete Blood Count LAB 06/25/25 Verified 06:00 Date of Service: Jun 24, 2025 Billing Provider: ELSI FONTANEZ MD Common Visit Codes: [id number] INP/OBS CARE(HIGH) CC Plasma Assessment Blood Product Administration S: [id number] ELSI FONTANEZ MD Jun 24, 2025 12:12
[2025-06-24 14:26] LABS: Iron 46.0 ug/dL (65-175); Total Iron Binding Capacity 277.0 ug/dL (250-425)
--- NOTE | 2025-06-24 17:10 | DVHPN2 ---
Progress Note Date Seen: Jun 24, 2025 Resident Creating Document: TANYA PHILLIP RESIDENT Medical Necessity Reason Pt with a Central, PICC or Fol: No Subjective Review of Systems Patient seen and examined with the bedside Reports to have bowel movement today and yesterday No blood noted in the stool, dark brown in color H&H is stable Patient is tolerating diet well Objective vital signs Vital Sign Date Time Temp Pulse Resp B/P (MAP) Pulse Ox O2 Delivery O2 Flow Rate FiO2 06/24/25 13:00 97.9 90 18 112/80 (91) 98 97.9 06/24/25 08:00 Room Air* 0 21 Total Intake and Output 06/23/25 06/23/25 06/24/25 14:59 22:59 06:59 Intake Total 310 ml 0 ml 0 ml Balance 310 ml 0 ml 0 ml medications Current Medications Medications Dose Ordered Sig/Petros Route Start Time Stop Time Status Last Admin Dose Admin Diagnostic Test (Pha) 1 strip ACHS 06/21/25 22:00 06/24/25 16:14 1 STRIP Insulin Human Regular ACHS SC 06/21/25 22:00 06/24/25 16:20 4 UNITS Dextrose 50 ml UD PRN IV 06/21/25 19:30 Ondansetron HCl 4 mg Q4HP PRN IV 06/21/25 19:30 Acetaminophen 650 mg Q6HP PRN PO 06/21/25 19:30 Pantoprazole Sodium 40 mg BID IV 06/22/25 22:00 06/24/25 09:54 40 MG Sodium Chloride 1,000 ml @ 75 mls/hr [id number] IV 06/22/25 12:15 06/24/25 16:22 75 MLS/HR Sucralfate 1 gm QID@0600,1130,1700,2200 PO 06/22/25 17:00 06/24/25 16:21 1 GM Examination Gen - no pallor, no scleral icterus Skin - Patients skin is warm and dry. HEENT - normocephalic, atraumatic, dry mucous membranes. Neck - supple, no lymphadenopathy Pulmonary - B/L clear breath sounds cardiovascular - regular S1,S2 heard GI - abdomen tense but no tenderness to palpation. Bowel sounds hypoactive. Neurological - Patient is alert and oriented x4 laboratory and microbiology Laboratory Tests 06/24/25 04:37 Test 06/24/25 04:37 Range/Units Serum Glucose 109 H 74-106 mg/dL Problem List/Assessment/Plan Problem List/Assessment/Plan Upper GI bleed Severe anemia likely due to above Probable acute gastritis Transaminitis H/o pancreatic cancer status post chemotherapy/radiation/Whipple's procedure Plan - Protonix b.i.d. - Carafate q.i.d. - tolerating soft diet well - monitor LFTs Plan discussed with Dr. Joshi Plan discussed with: Patient, Other (SIRI Kim) CC Plasma Assessment Blood Product Administration S: [id number] TANYA PHILLIP RESIDENT Jun 24, 2025 17:10
[2025-06-25] VITALS (14 sets, daily range): BP systolic 86–126; BP diastolic 52–84; PULSE 68–85; RESP 16–19; TEMP 97.5–99.1; O2SAT 95–98
[2025-06-25 06:28] LABS: Hematocrit 20.9 % (41.0-53.0); Mean Corpuscular Hemoglobin 33.0 pg (28.0-32.0); Mean Corpuscular Volume 98.5 fL (80.0-100.0); Nucleated Red Blood Cells % 0.1 %
[2025-06-25 06:58] LABS: Hemoglobin 7.0 g/dL (13.5-17.5)
--- NOTE | 2025-06-25 12:47 | DVHPN2 ---
Progress Note Date Seen: Jun 25, 2025 Resident Creating Document: JUAN PHILLIPELMO RESIDENT Medical Necessity Reason Pt with a Central, PICC or Fol: No Subjective Review of Systems H&H dropped from 8 to 7 Denies any abdominal pain No nausea or vomiting Continues to have soft bowel movement Objective vital signs Vital Sign Date Time Temp Pulse Resp B/P (MAP) Pulse Ox O2 Delivery O2 Flow Rate FiO2 06/25/25 05:00 97.5 80 17 88/53 (65) 98 97.5 06/24/25 20:00 Room Air* 0 21 Total Intake and Output 06/24/25 06/24/25 06/25/25 15:00 23:00 07:00 Intake Total 1672 ml 920 ml Balance 1672 ml 920 ml medications Current Medications Medications Dose Ordered Sig/Petros Route Start Time Stop Time Status Last Admin Dose Admin Diagnostic Test (Pha) 1 strip ACHS 06/21/25 22:00 06/25/25 11:30 1 STRIP Insulin Human Regular ACHS SC 06/21/25 22:00 06/24/25 21:29 2 UNITS Dextrose 50 ml UD PRN IV 06/21/25 19:30 Ondansetron HCl 4 mg Q4HP PRN IV 06/21/25 19:30 Acetaminophen 650 mg Q6HP PRN PO 06/21/25 19:30 Pantoprazole Sodium 40 mg BID IV 06/22/25 22:00 06/25/25 08:24 40 MG Sodium Chloride 1,000 ml @ 75 mls/hr [id number] IV 06/22/25 12:15 06/24/25 16:22 75 MLS/HR Sucralfate 1 gm QID@0600,1130,1700,2200 PO 06/22/25 17:00 06/25/25 08:24 1 GM Examination Gen - no pallor, no scleral icterus Skin - Patients skin is warm and dry. HEENT - normocephalic, atraumatic, dry mucous membranes. Neck - supple, no lymphadenopathy Pulmonary - B/L clear breath sounds cardiovascular - regular S1,S2 heard GI - abdomen tense but no tenderness to palpation. Bowel sounds hypoactive. Neurological - Patient is alert and oriented x4 laboratory and microbiology Laboratory Tests 06/25/25 05:34 06/24/25 04:37 Test 06/24/25 04:37 Range/Units Serum Glucose 109 H 74-106 mg/dL Problem List/Assessment/Plan Problem List/Assessment/Plan Upper GI bleed Severe anemia likely due to above Probable acute gastritis Transaminitis H/o pancreatic cancer status post chemotherapy/radiation/Whipple's procedure Plan - Protonix b.i.d. - Carafate q.i.d. - tolerating soft diet well - under H&H and keep hemoglobin above [address] Joshi Plan discussed with: Patient, Other (SIRI Kim) CC Plasma Assessment Blood Product Administration S: [id number] TANYA PHILLIP RESIDENT Jun 25, 2025 12:47
--- NOTE | 2025-06-25 14:44 | DVHPN2 ---
Progress Note Date Seen: Jun 25, 2025 Medical Necessity Reason Pt with a Central, PICC or Fol: No Subjective Patient reports: No new complaints Review of Systems: HEENT:Normal, CVS:Normal, RESPIRATORY:Normal, GI:Normal, :Normal, MSK:Normal, NEURO:Normal Objective vital signs Vital Sign Date Time Temp Pulse Resp B/P (MAP) Pulse Ox O2 Delivery O2 Flow Rate FiO2 06/25/25 14:21 98.0 68 18 126/84 98.0 06/25/25 08:00 96 Room Air* 0 21 Total Intake and Output 06/24/25 06/24/25 06/25/25 15:00 23:00 07:00 Intake Total 1672 ml 920 ml Balance 1672 ml 920 ml medications Current Medications Medications Dose Ordered Sig/Petros Route Start Time Stop Time Status Last Admin Dose Admin Diagnostic Test (Pha) 1 strip ACHS 06/21/25 22:00 06/25/25 11:30 1 STRIP Insulin Human Regular ACHS SC 06/21/25 22:00 06/25/25 11:30 4 UNITS Dextrose 50 ml UD PRN IV 06/21/25 19:30 Ondansetron HCl 4 mg Q4HP PRN IV 06/21/25 19:30 Acetaminophen 650 mg Q6HP PRN PO 06/21/25 19:30 Pantoprazole Sodium 40 mg BID IV 06/22/25 22:00 06/25/25 08:24 40 MG Sodium Chloride 1,000 ml @ 75 mls/hr [id number] IV 06/22/25 12:15 06/24/25 16:22 75 MLS/HR Sucralfate 1 gm QID@0600,1130,1700,2200 PO 06/22/25 17:00 06/25/25 08:24 1 GM Examination: GENERAL:Normal, HEENT:Normal, NECK:Normal, LUNGS:Normal, CVS:Normal, ABDOMEN:Normal, MSK:Normal, SKIN:Normal, NEURO:Normal, :Normal laboratory and microbiology Laboratory Tests 06/25/25 05:34 06/24/25 04:37 Test 06/24/25 04:37 Range/Units Serum Glucose 109 H 74-106 mg/dL Problem List/Assessment/Plan Problem List/Assessment/Plan #1 severe anemia s/p transfusion, transfuse #2 gi bleed: anastomotic ulcer, ppi, carafate #3 pancreatic cancer s/p Whipple's surgery/chemo/radiation: ct abdomen #4 dm: ssi #5 cad s/p stent #6 transaminitis advance care planning- full code- time spent 18 mins Plan discussed with: Patient, Spouse My Orders My Orders Orders - ELSI FONTANEZ MD Procedure Category Date Status Time Packedcells -Active BBK 06/25/25 Verified Bleeding 14:42 Type And Screen BBK 06/25/25 Verified 14:42 Administer Blood RUBEN 06/25/25 Verified Products 14:42 Complete Blood Count LAB 06/26/25 Verified 06:00 Comprehensive LAB 06/26/25 Verified Metabolic Panel 06:00 Date of Service: Jun 25, 2025 Billing Provider: ELSI FONTANEZ MD Common Visit Codes: [id number] INP/OBS CARE(HIGH) CC Plasma Assessment Blood Product Administration S: [id number] ELSI FONTANEZ MD Jun 25, 2025 14:44
[2025-06-26] VITALS (8 sets, daily range): BP systolic 95–108; BP diastolic 52–75; PULSE 60–83; RESP 17–20; TEMP 98–98.4; O2SAT 94–97
[2025-06-26 01:07] LABS: Hematocrit 25.4 % (41.0-53.0); Hemoglobin 8.6 g/dL (13.5-17.5); Mean Corpuscular Hemoglobin 32.0 pg (28.0-32.0); Mean Corpuscular Volume 94.3 fL (80.0-100.0); Nucleated Red Blood Cells % 0.3 %
[2025-06-26 07:32] LABS: Alanine Aminotransferase 38 U/L (7-40); Anion Gap 11 (5-15); BUN/Creatinine Ratio 12.0 (10.0-20.0); Blood Urea Nitrogen 11 mg/dL (9-23); Carbon Dioxide 24 mmol/L (20-31); Glucose 83 mg/dL (74-106); Potassium 3.6 mmol/L (3.5-5.1); Sodium 143 mmol/L (136-145)
[2025-06-26 07:33] LABS: Albumin 2.4 g/dL (3.2-4.8); Alkaline Phosphatase 305 U/L (46-116); Bilirubin, Total 1.3 mg/dL (0.2-1.0); Calcium 7.7 mg/dL (8.7-10.4); Chloride 108 mmol/L (98-107); Total Protein 5.6 g/dL (5.7-8.2)
--- NOTE | 2025-06-26 13:55 | DVHPN2 ---
Progress Note - Dictate Date Seen: Jun 26, 2025 Medical Necessity Reason Pt with a Central, PICC or Fol: No Subjective No new complaints Patient is doing well He is tolerating soft mechanical diet No active GI bleeding is reported Patient received 1 unit PRBC yesterday His hemoglobin is up to 8.6 today vital signs Vital Sign Date Time Temp Pulse Resp B/P (MAP) Pulse Ox O2 Delivery O2 Flow Rate FiO2 06/26/25 12:52 98.2 83 20 108/75 (86) 94 98.2 06/26/25 08:00 Room Air* 0 21 Total Intake and Output 06/25/25 06/25/25 06/26/25 15:00 23:00 07:00 Intake Total 600 ml 1750 ml 650 ml Balance 600 ml 1750 ml 650 ml medications Current Medications Medications Dose Ordered Sig/Petros Route Start Time Stop Time Status Last Admin Dose Admin Diagnostic Test (Pha) 1 strip ACHS 06/21/25 22:00 06/26/25 11:30 1 STRIP Insulin Human Regular ACHS SC 06/21/25 22:00 06/26/25 12:26 3 UNITS Dextrose 50 ml UD PRN IV 06/21/25 19:30 Ondansetron HCl 4 mg Q4HP PRN IV 06/21/25 19:30 Acetaminophen 650 mg Q6HP PRN PO 06/21/25 19:30 Pantoprazole Sodium 40 mg BID IV 06/22/25 22:00 06/26/25 10:47 40 MG Sucralfate 1 gm QID@0600,1130,1700,2200 PO 06/22/25 17:00 06/26/25 10:47 1 GM objective Gen - no pallor, no scleral icterus Skin - Patients skin is warm and dry. HEENT - normocephalic, atraumatic, dry mucous membranes. Neck - supple, no lymphadenopathy Pulmonary - B/L clear breath sounds cardiovascular - regular S1,S2 heard GI - abdomen tense but no tenderness to palpation. Bowel sounds hypoactive. Neurological - Patient is alert and oriented x4 laboratory and microbiology Laboratory Tests 06/26/25 06:07 06/26/25 00:39 Test 06/26/25 06:07 Range/Units Serum Glucose 83 74-106 mg/dL Problems(with codes): (1) History of Whipple procedure (2) Anastomotic ulcer (3) Severe anemia (4) Pancreatic cancer Prognosis Plan Continue conservative management from GI point of view at this time Protonix 40 mg IV q.12 hours Carafate suspension 1 g 4 times a day DC aspirin NSAIDs smoking alcohol Monitor labs Outpatient follow up with GI Services as needed upon discharge Plan discussed with: Other (Nurse) CC Plasma Assessment Blood Product Administration S: [id number] ALANA HANNA MD Jun 26, 2025 13:55
[2025-06-26] MEDS ORDERED: SUCR1TAB31 OR (15:20)
[2025-06-26] MEDS ORDERED: PANT40TA2 PO (15:20)
--- NOTE | 2025-06-26 15:26 | DVHPN2 ---
Subjective Patient reports having bowel movement that had dark tarry consistency Reviewed: Care Plan, H&P, Labs Changes from previous H/P or p: No Changes General: Per HPI Objective Vitals Vital Signs Date Time Temp Pulse Resp B/P (MAP) Pulse Ox O2 Delivery O2 Flow Rate FiO2 06/26/25 12:52 98.2 83 20 108/75 (86) 94 98.2 06/26/25 08:00 Room Air* 0 21 Intake/Output Intake and Output 06/26/25 07:00 Intake Total 3000 ml Balance 3000 ml Intake Oral 1500 ml Blood Product 1200 ml Packed Cells 300 ml # Voids 4 # Bowel Movements 3 General Appearance: Alert, Oriented X3, Cooperative, No acute distress HEENT: Atraumatic, PERRLA Lungs: Clear to auscultation, Normal air movement Cardiovascular: Normal S1, Normal S2 Abdomen: Normal bowel sounds, Soft, No tenderness, No hepatospenomegaly Genitourinary: No Apparent Abnormalities Musculoskeletal: Normal sensory function, Normal motor function Psych/Mental Status: Mental status NL, Mood NL Medications Current Medications Medications Dose Ordered Sig/Petros Route Start Time Stop Time Status Last Admin Dose Admin Diagnostic Test (Pha) 1 strip ACHS 06/21/25 22:00 06/26/25 11:30 1 STRIP Insulin Human Regular ACHS SC 06/21/25 22:00 06/26/25 12:26 3 UNITS Dextrose 50 ml UD PRN IV 06/21/25 19:30 Ondansetron HCl 4 mg Q4HP PRN IV 06/21/25 19:30 Acetaminophen 650 mg Q6HP PRN PO 06/21/25 19:30 Pantoprazole Sodium 40 mg BID IV 06/22/25 22:00 06/26/25 10:47 40 MG Sucralfate 1 gm QID@0600,1130,1700,2200 PO 06/22/25 17:00 06/26/25 10:47 1 GM Laboratory Results Laboratory Tests 06/26/25 00:39 06/26/25 06:07 Chemistry Test 06/26/25 06:07 Albumin 2.4 g/dL (3.2-4.8) L Calcium Level 7.7 mg/dL (8.7-10.4) L Total Protein 5.6 g/dL (5.7-8.2) L LFT Test 06/26/25 06:07 Alanine Aminotransferase (ALT) 38 U/L (7-40) Alkaline Phosphatase 305 U/L (46-116) H Aspartate Amino Transferase (AST) 53 U/L (13-40) H Total Bilirubin 1.3 mg/dL (0.2-1.0) H Labs and/or images reviewed: Labs reviewed by me, Image(s) reviewed by me Assessment/Plan Assessment/Plan Impression: -GI bleed. Ulceration at anastomosis of previous Whipple surgery. Status post EGD -severe anemia -pancreatic cancer, status post Whipple surgery, chemotherapy, radiation -diabetes mellitus -history of coronary artery disease with previous stent placement -transaminitis Plan: Events: Patient received 1 unit PRBC yesterday evening. Reports having bowel movement with questionable residual upper GI bleed -continue Carafate, ppi -GI consultation -repeat H&H in a.m. -regular insulin sliding scale -reassess for discharge in a.m. Total time spent with patient discussing and formulating plan of care: 35 minutes. This medical document was created using an electronic medical record system with [employer] dictation system. Although this document has been carefully reviewed, there may still be some phonetic and typographical errors. These areas are purely typographical due to imperfections of the software programs, and do not reflect any compromise in the patient's medical care. Plan discussed with: Patient, Other (RN) My Orders Orders - SEEMA REGALADO NP Procedure Category Date Status Time Hemoglobin & LAB 06/27/25 Verified Hematocrit 04:00 Date of Service: Jun 26, 2025 Billing Provider: SEEMA REGALADO NP Common Visit Codes: [id number] INP/OBS CARE(HIGH) SEEMA REGALADO NP Jun 26, 2025 15:26
[2025-06-27 01:29] VITALS: BP 108/66; PULSE 78; RESP 18; TEMP 98.2; O2SAT 93
[2025-06-27 05:05] VITALS: BP 104/60; PULSE 73; RESP 18; TEMP 98.2; O2SAT 95
[2025-06-27 06:17] LABS: Hematocrit 27.8 % (41.0-53.0); Hemoglobin 9.4 g/dL (13.5-17.5)
[2025-06-27 08:00] VITALS: PULSE 68
[2025-06-27 09:00] VITALS: BP 93/62; PULSE 78; RESP 18; TEMP 99.4; O2SAT 97
[2025-06-27 12:48] VITALS: BP 109/70; PULSE 104; RESP 16; TEMP 98.3; O2SAT 98
--- NOTE | 2025-06-27 13:35 | DVHDS2 ---
Discharge Summary Date of Admission Jun 21, 2025 at 19:25 Date of Discharge: Jun 27, 2025 Labs/Diagnostic Data: Laboratory Results Test 06/27/25 11:08 06/27/25 05:25 06/26/25 06:07 06/26/25 00:39 POC Glucose 174 mg/dl (70-106) Hemoglobin 9.4 g/dL (13.5-17.5) Hematocrit 27.8 % (41.0-53.0) Sodium Level 143 mmol/L (136-145) Potassium Level 3.6 mmol/L (3.5-5.1) Chloride Level 108 mmol/L (98-107) Carbon Dioxide Level 24 mmol/L (20-31) Anion Gap 11 (5-15) Blood Urea Nitrogen 11 mg/dL (9-23) Creatinine 0.92 mg/dL (0.700-1.30) Glomerular Filtration Rate Calc 87 mL/min (>90) BUN/Creatinine Ratio 12.0 (10.0-20.0) Serum Glucose 83 mg/dL (74-106) Calcium Level 7.7 mg/dL (8.7-10.4) Total Bilirubin 1.3 mg/dL (0.2-1.0) Aspartate Amino Transferase (AST) 53 U/L (13-40) Alanine Aminotransferase (ALT) 38 U/L (7-40) Alkaline Phosphatase 305 U/L (46-116) Total Protein 5.6 g/dL (5.7-8.2) Albumin 2.4 g/dL (3.2-4.8) White Blood Count 3.7 10^3/uL (4.4-10.8) Red Blood Count 2.69 10^6/uL (4.5-5.90) Mean Corpuscular Volume 94.3 fL (80.0-100.0) Mean Corpuscular Hemoglobin 32.0 pg (28.0-32.0) Mean Corpuscular Hemoglobin Concent 34.0 g/dL (32.0-36.0) Red Cell Distribution Width 16.5 % (11.8-14.3) Platelet Count 119 10^3/uL (140-450) Mean Platelet Volume 7.4 fL (6.9-10.8) Neutrophils (%) (Auto) 70.2 % (37.0-80.0) Lymphocytes (%) (Auto) 17.3 % (10.0-50.0) Monocytes (%) (Auto) 10.7 % (0.0-12.0) Eosinophils (%) (Auto) 1.6 % (0.0-7.0) Basophils (%) (Auto) 0.2 % (0.0-2.0) Neutrophils # (Auto) 2.6 10 ^3/uL (1.6-8.6) Lymphocytes # (Auto) 0.6 10 ^3/uL (0.4-5.4) Monocytes # (Auto) 0.4 10 ^3/uL (0-1.3) Eosinophils # (Auto) 0.1 10 ^3/uL (0-0.8) Basophils # (Auto) 0 10 ^3/uL (0-0.2) Nucleated Red Blood Cells 0.3 % Test 06/24/25 04:37 06/23/25 04:41 06/22/25 06:22 06/21/25 12:24 Iron Level 46 ug/dL (65-175) Total Iron Binding Capacity 277 ug/dL (250-425) Percent Iron Saturation 16.6 % (20-55) Vitamin B12 Level 889 pg/mL (211-911) Hemoglobin A1c 6.6 % A1C (<5.7) CA 19-9 Antigen 235 U/mL (0-35) Prothrombin Time 13.1 sec (9.3-11.8) Prothrombin Time INR 1.26 (0.9-1.15) Activated Partial Thromboplast Time 23.1 SEC (24.5-34.5) Test 06/21/25 10:57 06/21/25 07:45 Lipase 12 U/L (12-53) Stool Occult Blood Positive (Negative) Stool Occult Blood Sample #3 (Negative) Other Laboratory Tests 06/27/25 05:25 06/26/25 06:07 06/26/25 00:39 Brief Hx & Hospital Course: 74-year-old male presents for evaluation of generalized weakness. Patient reports a three-week history of generalized weakness with associated shortness for breath. He reports having a history of pancreatic carcinoma status post chemotherapy and radiation therapy. He reports last time he had similar symptoms he had low blood level and had to be transfused. Denies chest pain. No other acute complaints. PUD found on EGD Discharged on sucralfate and PPI Anemia resolved and no further bleeding Condition at Discharge: Good Final Diagnosis/Problems List PUD Acute GI bleeding Discharge Disposition: Home Discharge Instruct/Medications Diet: Regular Activity: No Restrictions, As Tolerated Follow Up/Referral: GI in 7 days Medications: sucralfate, pantoprazole Scheduled Pantoprazole Sodium Sesquihydr (Protonix), 40 MG PO BID Sucralfate (Carafate), 1 GM OR ACHS Discharge Statement: "Patient was advised to return to the ER or call 911 if any headaches, dizziness, shortness of breath, chest pain, abdominal pain, bleeding, fevers, or worsening of medical condition. Patient was counseled about treatment plan, medications, possible side effects, patientverbalized understanding. All questions were answered to the best of my ability. This discharge took greater then 30 minutes in planning, reviewing documentation, counseling the patient, and discussing with other team members." ASSESSMENT ASSESSMENT Assessment PUD Acute GI bleeding Date of Service: Jun 27, 2025 Billing Provider: CHRISTOS MARTINEZ MD Common Visit Codes: 29342-ZOE/OBS DISCH DAY >30min CHRISTOS MARTINEZ MD Jun 27, 2025 13:35
[2025-06-27 14:14] VITALS: BP 93/62; PULSE 78; RESP 18; TEMP 99.4; O2SAT 97
== END 2025-06-27 15:00 | disposition home or self-care (01) | DRG 378 ==
LOC: ER 10:07 → OVERFLOW 19:25 → WEST WING 21:33 → TELE-WESTW 06-22 21:02
PROVIDERS: ADMIT Nurse Practitioner Acute Care; ATTEND Nurse Practitioner Acute Care
PROC: 30233N1 Transfusion of Nonautologous Red Blood Cells into Peripheral Vein, Percutaneous Approach (ICD-10-PCS; principal; 2025-06-21)
PROC: 05HA33Z Insertion of Infusion Device into Left Brachial Vein, Percutaneous Approach (ICD-10-PCS; 2025-06-21)
PROC: B54NZZA Ultrasonography of Left Upper Extremity Veins, Guidance (ICD-10-PCS; 2025-06-21)
PROC: 0DBA8ZX Excision of Jejunum, Via Natural or Artificial Opening Endoscopic, Diagnostic (ICD-10-PCS; 2025-06-23)
PROC: 0DB68ZX Excision of Stomach, Via Natural or Artificial Opening Endoscopic, Diagnostic (ICD-10-PCS; 2025-06-23)
DX: K28.0 Acute gastrojejunal ulcer with hemorrhage (principal); R71.0 Precipitous drop in hematocrit; I11.0 Hypertensive heart disease with heart failure; I50.9 Heart failure, unspecified; E11.9 Type 2 diabetes mellitus without complications; I25.10 Atherosclerotic heart disease of native coronary artery without angina pectoris; R74.01 Elevation of levels of liver transaminase levels; K44.9 Diaphragmatic hernia without obstruction or gangrene; Z92.21 Personal history of antineoplastic chemotherapy; Z90.411 Acquired partial absence of pancreas; Z85.07 Personal history of malignant neoplasm of pancreas; Z92.3 Personal history of irradiation; Z81.1 Family history of alcohol abuse and dependence; Z83.3 Family history of diabetes mellitus; Z82.49 Family history of ischemic heart disease and other diseases of the circulatory system; Z95.5 Presence of coronary angioplasty implant and graft; K29.00 Acute gastritis without bleeding
CPT/HCPCS: 36415; 43239; 71045; 74018; 74177; 80048; 80053; 82270; 82607; 82962; 83036; 83540; 83550; 83690; 85014; 85018; 85025; 85610; 85730; 86301; 86850; 86900; 86901; 86920; 93005; 96360; 99291; G0378; J1815; J2003; J2250; J2470